=== PATIENT | female | born 1995 | race Caucasian/White ===

== ENCOUNTER 2016-05-31 18:50 | Emergency (ER) | payer OTHER ==
[~2016-05-31] VITALS: Ht 165.1 cm; Wt 63.5 kg
[~2016-05-31 18:50] MED LIST: KEFLEX500 MG PO; NORCO 5-325 TA1 EACH PO; PREDNICOT10 MG PO; PRENATAL1 TA3 PO
== END 2016-05-31 20:21 | disposition home or self-care (01) ==
LOC: ED 18:50
DX: S61.012A Laceration without foreign body of left thumb without damage to nail, initial encounter (principal); F17.200 Nicotine dependence, unspecified, uncomplicated; W26.8XXA Contact with other sharp object(s), not elsewhere classified, initial encounter; Y93.89 Activity, other specified; Y92.9 Unspecified place or not applicable; Y99.9 Unspecified external cause status